=== PATIENT | male | born 1955 | race American Indian/Alaskan Native ===

== ENCOUNTER 2017-03-11 15:28 | Emergency (ER) | payer MEDICARE ==
[2017-03-11 15:53] VITALS: BP 154/95; PULSE 78; RESP 18; TEMP 98.2; O2SAT 96
--- NOTE | 2017-03-11 16:23 | ED PDOC ---
HPI: Back Time Seen by Provider: 03/11/17 16:22 Chief Complaint (Nursing): Back Pain Chief Complaint (Provider): BACK PAIN History Per: Patient (61 Y/O MALE H/O PROSTATE CANCER HERE WITH LOWER BACK PAIN AND PAIN RADIATING TO LEFT LEG/FOOT. STATES HE HAS H/O URINARY INCONTINENCE RELATED TO PROSTATE ILLNESS. NOTES ADDITIONAL RAOUL-RECTAL PAIN WHICH HE ATTRIBUTES TO HEMORRHOIDS. HAS USED ANUSOL WITHOUT RELIEF. PERIRECTAL PAIN WAS MADE WORSE WITH RECENT FREQUENT STOOLS.) Past Medical History Reviewed: Historical Data, Nursing Documentation, Vital Signs Vital Signs: Last Vital Signs Temp 98.2 F 03/11/17 15:52 Pulse 78 03/11/17 15:52 Resp 18 03/11/17 15:52 BP 154/95 H 03/11/17 15:52 Pulse Ox 96 03/11/17 15:52 - Medical History PMH: Anxiety, Diabetes (type I), HTN, Malignancy (prostate cancer), Chronic Kidney Disease - Family History Family History: States: Unknown Family Hx - Immunization History Hx Tetanus Toxoid Vaccination: No Hx Influenza Vaccination: No Hx Pneumococcal Vaccination: No - Home Medications Home Medications: Ambulatory Orders Medication Instructions Recorded Insulin Glargine,Hum.rec.anlog 10 unit SC DAILY 03/23/15 [Lantus] Losartan [Cozaar] 100 mg PO DAILY 01/24/16 Ciprofloxacin [Cipro] 500 mg PO Q12 #14 tab 01/25/16 PARoxetine [Paxil] 20 mg PO DAILY #0 tab 01/25/16 Promethazine [Phenergan Syrup] 6.25 mg PO Q6 PRN #0 cup 01/25/16 metroNIDAZOLE [Flagyl] 500 mg PO Q8 #21 tab 01/25/16 Promethazine DM [Phenergan DM 10 ml PO Q8H PRN #120 ml 11/14/16 Syrup] Sulfamethoxazole/Trimethoprim 1 tab PO BID #14 tab 11/14/16 [Bactrim DS 800 mg-160 mg] Docusate [Colace] 100 mg PO BID #20 cap 03/11/17 - Allergies Allergies/Adverse Reactions: Allergies Allergy/AdvReac Type Severity Reaction Status Date / Time No Known Allergies Allergy Verified 03/11/17 15:51 Review of Systems ROS Statement: Except As Marked, All Systems Reviewed And Found Negative Physical Exam - Reviewed Nursing Documentation Reviewed: Yes Vital Signs Reviewed: Yes - Physical Exam Appears: Positive for: Well, Non-toxic, No Acute Distress Head Exam: Positive for: ATRAUMATIC, NORMAL INSPECTION, NORMOCEPHALIC Skin: Positive for: Normal Color, Warm, DRY Eye Exam: Positive for: EOMI, Normal appearance, PERRL ENT: Positive for: Normal ENT Inspection Neck: Positive for: Normal, Painless ROM Cardiovascular/Chest: Positive for: Regular Rate, Rhythm Respiratory: Positive for: CNT, Normal Breath Sounds Gastrointestinal/Abdominal: Positive for: Normal Exam, Bowel Sounds, Soft Back: Positive for: Normal Inspection Rectal: Positive for: Other (ULCER NOTED LEFT RAOUL-RECTAL REGION.) Extremity: Positive for: Normal ROM Neurologic/Psych: Positive for: Alert, Oriented - Laboratory Results Result Diagrams: 03/11/17 16:45 - ECG O2 Sat by Pulse Oximetry: 96 - Progress ED Course And Treament: ct l spine Impression: Degenerative changes. Osseous demineralization. No acute fracture or subluxation identified. 6 mm L3 sclerotic focus. At least 2 subcentimeter sclerotic foci right iliac wing. 3 mm L1 lucent focus, right articular process. In this patient with prostate cancer, recommend further evaluation with nuclear medicine bone scan and /or MRI lumbar spine without and with IV contrast. 15 mm soft tissue density within the left upper quadrant favored to represent splenule, however distal pancreatic tail lesion cannot be excluded. This region is not well visualized on prior study due to motion artifact. Recommend outpatient CT of the abdomen and pelvis for further evaluation if indicated. G/C SENT FOR ULCERATIVE LESIONS BY RECTUM. PATIENT DENIES ANY H/O ANAL INTERCOURSE OR TRAUMA TO REGION. ADVISED TO F/U WITH GI FOR FURTHER EVALUATION. CT RESULTS D/W HIM. PATIENT WILL F/U WITH PMD TOMORROW FOR MRI REFERRAL. Disposition - Clinical Impression Clinical Impression: Back pain, Perirectal ulcer - Patient ED Disposition Is Patient to be Admitted: No - Disposition Referrals: Chandra Poon MD [Staff Provider] - Timothy Huerta MD [Staff Provider] - Disposition: Routine/Home Disposition Time: 19:05 Condition: FAIR Additional Instructions: FOLLOW UP WITH YOUR PMD FOR EVALUATION OF YOUR SPINE WITH MRI. Prescriptions: Docusate [Colace] 100 mg PO BID #20 cap Instructions: Acute Low Back Pain (DC), Sciatica (ED)
[2017-03-11 16:59] LABS: BASO % 0.6 % (0.0-2.0); EOS # 0.2 K/uL (0.0-0.7); EOS % 4.4 % (0.0-4.0); HEMATOCRIT 38.8 % (35.0-51.0); LYMPH # 2.4 K/uL (1.0-4.3); LYMPH % 52.7 % (20.0-40.0); MEAN CELL VOLUME 84.4 fl (80.0-94.0); MEAN CORPUSCULAR HEMOGLOBIN 29.5 pg (27.0-31.0); MEAN CORPUSCULAR HGB CONC 34.9 g/dL (33.0-37.0); MEAN PLATELET VOLUME 8.2 fl (7.2-11.7); MONO # 0.5 K/uL (0.0-0.8); MONO % 10.8 % (0.0-10.0); NEUT # 1.4 K/uL (1.8-7.0); NEUT % 31.5 % (50.0-75.0); NRBC % 0.3 % (0.0-0.0); RED CELL DISTRIBUTION WIDTH 14.5 % (11.5-14.5); WHITE BLOOD COUNT 4.6 K/uL (4.8-10.8)
--- NOTE | 2017-03-11 18:28 | CT ---
CT lumbar spine without IV contrast Indication: Back pain history of prostate cancer Comparison: CT abdomen and pelvis with contrast 01/23/16 Technique: Noncontrast axial images of the lumbar spine were provided. Sagittal and coronal reformatted images were generated and reviewed. This CT exam was performed using 1 or more of the falling dose reduction techniques: Automated exposure control, adjustment of the MAA and/or kV according to patient size, and/or use of iterative reconstruction technique. Total exam DLP: 1477.80 MGy-cm Findings: Osseous demineralization limits evaluation. Vertebral body heights appear within normal limits. Alignment appears satisfactory. No acute fracture or subluxation identified. Paraspinal soft tissues appear unremarkable. 6 mm L3 sclerotic focus. At least 2 subcentimeter sclerotic foci right iliac wing. 3 mm L1 lucent focus, right articular process. Degenerative change occluding anterior bridging osteophytes sacroiliac joints. Limited visualization of the intra-abdominal and intrapelvic contents: 15 mm soft tissue density within the left upper quadrant favored to represent splenule, however distal pancreatic tail lesion cannot be excluded. Impression: Degenerative changes. Osseous demineralization. No acute fracture or subluxation identified. 6 mm L3 sclerotic focus. At least 2 subcentimeter sclerotic foci right iliac wing. 3 mm L1 lucent focus, right articular process. In this patient with prostate cancer, recommend further evaluation with nuclear medicine bone scan and /or MRI lumbar spine without and with IV contrast. 15 mm soft tissue density within the left upper quadrant favored to represent splenule, however distal pancreatic tail lesion cannot be excluded. This region is not well visualized on prior study due to motion artifact. Recommend outpatient CT of the abdomen and pelvis for further evaluation if indicated.
--- NOTE | 2017-03-12 07:55 | RAD ---
PROCEDURE: Radiographs of the Lumbar Spine. HISTORY: BACK PAIN COMPARISON: No prior. FINDINGS: BONES: Normal alignment. No listhesis. No fracture. DISC SPACES: Mild degenerative changes more prominent at L3-L4 and L4-L5. OTHER FINDINGS: None. IMPRESSION: Degenerative disc changes more prominent at L3-L4 and L4-L5. No evidence of acute fracture or subluxation.
== END 2017-03-11 19:35 | disposition home or self-care (01) ==
LOC: H.ER 15:28
DX: M54.9 Dorsalgia, unspecified (principal); K62.6 Ulcer of anus and rectum; I12.9 Hypertensive chronic kidney disease with stage 1 through stage 4 chronic kidney disease, or unspecified chronic kidney disease; M51.36 Other intervertebral disc degeneration, lumbar region; Z79.4 Long term (current) use of insulin; Z85.46 Personal history of malignant neoplasm of prostate; M79.605 Pain in left leg; R10.9 Unspecified abdominal pain

== ENCOUNTER 2018-04-14 16:48 | Emergency (ER) | payer MEDICARE ==
[2018-04-14 16:56] VITALS: RESP 16
--- NOTE | 2018-04-14 17:31 | ED PDOC ---
HPI: Abdomen Time Seen by Provider: 04/14/18 17:25 Chief Complaint (Nursing): Abdominal Pain History Per: Patient Onset/Duration Of Symptoms: Days (2) Current Symptoms Are (Timing): Still Present Severity: Mild Pain Scale Rating Of: 2 Location Of Pain/Discomfort: LLQ Quality Of Discomfort: Sharp Associated Symptoms: Nausea, Urinary Symptoms. denies: Vomiting, Diarrhea Exacerbating Factors: None Alleviating Factors: None Additional Complaint(s): Sharp LLQ abd pain assoc with nausea. Has also noted dark colored urine assoc with burning. Denies fever. No vomiting or diarrhea. No bloody stool. Past Medical History Vital Signs: Last Vital Signs Temp 98.9 F 04/14/18 19:43 Pulse 64 04/14/18 19:43 Resp 16 04/14/18 19:43 BP 147/84 04/14/18 19:43 Pulse Ox 98 04/14/18 19:43 - Medical History PMH: Anxiety, Diabetes (type I), HTN, Malignancy (prostate cancer), Chronic Kidney Disease - Family History Family History: States: Unknown Family Hx - Immunization History Hx Tetanus Toxoid Vaccination: No Hx Influenza Vaccination: No Hx Pneumococcal Vaccination: No - Home Medications Home Medications: Ambulatory Orders Medication Instructions Recorded Insulin Glargine,Hum.rec.anlog 10 unit SC DAILY 03/23/15 [Lantus] Losartan [Cozaar] 100 mg PO DAILY 01/24/16 Ciprofloxacin [Cipro] 500 mg PO Q12 #14 tab 01/25/16 PARoxetine [Paxil] 20 mg PO DAILY #0 tab 01/25/16 Promethazine [Phenergan Syrup] 6.25 mg PO Q6 PRN #0 cup 01/25/16 metroNIDAZOLE [Flagyl] 500 mg PO Q8 #21 tab 01/25/16 Promethazine DM [Phenergan DM 10 ml PO Q8H PRN #120 ml 11/14/16 Syrup] Sulfamethoxazole/Trimethoprim 1 tab PO BID #14 tab 11/14/16 [Bactrim DS 800 mg-160 mg] Docusate [Colace] 100 mg PO BID #20 cap 03/11/17 Ciprofloxacin HCl [Cipro] 500 mg PO BID #20 tab 04/14/18 Dicyclomine [Dicyclomine HCl] 10 mg PO Q8 #10 cap 04/14/18 - Allergies Allergies/Adverse Reactions: Allergies Allergy/AdvReac Type Severity Reaction Status Date / Time No Known Allergies Allergy Verified 04/14/18 16:51 Review of Systems ROS Statement: Except As Marked, All Systems Reviewed And Found Negative Constitutional: Negative for: Fever Gastrointestinal: Positive for: Nausea, Abdominal Pain Physical Exam - Reviewed Nursing Documentation Reviewed: Yes Vital Signs Reviewed: Yes - Physical Exam Appears: Positive for: Non-toxic, No Acute Distress Head Exam: Positive for: ATRAUMATIC, NORMAL INSPECTION, NORMOCEPHALIC Skin: Positive for: Normal Color, Warm, DRY Eye Exam: Positive for: EOMI, Normal appearance, PERRL ENT: Positive for: Normal ENT Inspection Neck: Positive for: Normal, Painless ROM Cardiovascular/Chest: Positive for: Regular Rate, Rhythm Respiratory: Positive for: CNT, Normal Breath Sounds Gastrointestinal/Abdominal: Positive for: Soft, Tenderness (LLQ) Back: Positive for: Normal Inspection Extremity: Positive for: Normal ROM Neurologic/Psych: Positive for: Alert, Oriented - Laboratory Results Result Diagrams: 04/14/18 17:38 04/14/18 17:38 - ECG O2 Sat by Pulse Oximetry: 95 Disposition - Clinical Impression Clinical Impression: UTI (urinary tract infection), Colitis - Patient ED Disposition Is Patient to be Admitted: No Counseled Patient/Family Regarding: Studies Performed, Diagnosis, Need For Followup, Rx Given - Disposition [facility]errals: [facility]] Disposition: Routine/Home Disposition Time: 20:04 Condition: FAIR Prescriptions: Ciprofloxacin HCl [Cipro] 500 mg PO BID #20 tab Dicyclomine [Dicyclomine HCl] 10 mg PO Q8 #10 cap Instructions: Urinary Tract Infections in Adults, Irritable Bowel Syndrome Forms: [employer] (Tajik)
[2018-04-14 17:43] LABS: BASO # 0.1 K/uL (0.0-0.2); BASO % 0.8 % (0.0-2.0); EOS # 0.2 K/uL (0.0-0.7); EOS % 2.1 % (0.0-4.0); HEMOGLOBIN 14.9 g/dL (12.0-18.0); LYMPH # 3.5 K/uL (1.0-4.3); LYMPH % 45.9 % (20.0-40.0); MEAN CELL VOLUME 84.8 fl (80.0-94.0); MEAN CORPUSCULAR HEMOGLOBIN 28.9 pg (27.0-31.0); MEAN CORPUSCULAR HGB CONC 34.1 g/dL (33.0-37.0); MEAN PLATELET VOLUME 7.8 fl (7.2-11.7); MONO # 0.7 K/uL (0.0-0.8); MONO % 9.5 % (0.0-10.0); NEUT # 3.2 K/uL (1.8-7.0); NEUT % 41.7 % (50.0-75.0); NRBC % 0.2 % (0.0-0.0); RBC 5.15 Mil/uL (4.40-5.90); RED CELL DISTRIBUTION WIDTH 14.3 % (11.5-14.5); WHITE BLOOD COUNT 7.7 K/uL (4.8-10.8)
[2018-04-14 17:55] LABS: ALB/GLOB RATIO 0.8 (1.0-2.1); ALBUMIN 3.8 g/dL (3.5-5.0); ALT/SGPT 55 U/L (21-72); AST/SGOT 34 U/L (17-59); BLOOD UREA NITROGEN 9 mg/dl (9-20); CALCIUM 9.4 mg/dL (8.4-10.2); GFR AFRICAN-AMERICAN > 60; GFR NON-AFRICAN AMERICAN > 60
[2018-04-14] MEDS ORDERED: Sodium Chloride 0.9% 50 ML IV ONE (18:10)
[2018-04-14] MEDS ORDERED: Iohexol 300 100 ML IJ ONE (18:10)
[2018-04-14 19:44] VITALS: BP 147/84; PULSE 64; TEMP 98.9
--- NOTE | 2018-04-14 20:02 | CT ---
EXAM: CT Abdomen and Pelvis With Intravenous Contrast EXAM DATE/TIME: 04/14/2018 5:29 PM CLINICAL HISTORY: 62 years old, male; Pain; Abdominal pain; Generalized; Prior surgery; Surgery date: 6+ months; Surgery type: Prostate removed; Additional info: Abd pain, h/o colitis TECHNIQUE: Axial computed tomography images of the abdomen and pelvis with intravenous contrast. All CT scans at this facility use one or more dose reduction techniques, viz.: automated exposure control; ma/kV adjustment per patient size (including targeted exams where dose is matched to indication; i.e. head); or iterative reconstruction technique. Coronal and sagittal reformatted images were created and reviewed. CONTRAST: 100 mL of [id number] administered intravenously. COMPARISON: CT - ABD PELVIS PO IV CONTRAST 2016-01-23 23:33 FINDINGS: Lower thorax: Heart size is normal. There is a small hiatal hernia. There is minimal atelectasis and scarring at the lung bases. ABDOMEN: Liver: There is fatty infiltration of the liver. Hepatic contours are nodular. Gallbladder and bile ducts: unremarkable Pancreas: unremarkable Spleen: Spleen is unremarkable. There is an accessory spleen in the left upper quadrant. Adrenals: There is mild nodular thickening of the adrenals right greater than left. Kidneys and ureters: Right kidney and ureter are unremarkable. There is an exophytic 10 mm left lower pole renal lesion not a cyst by CT criteria. There are no left renal or ureteral stones. There is mild left ureterectasis. There is left ureteral mucosal thickening and enhancement. Stomach and bowel: Stomach is incompletely distended. Rotation is normal. There are mildly distended small bowel loops in the left upper quadrant. There is mild duodenal and proximal jejunal wall and fold thickening. There is fluid and air throughout the small bowel. There mildly distended mid small bowel loops. There is mild terminal ileal wall thickening with fatty infiltration of the terminal ileal. There is asymmetric fatty infiltration of the colon wall. There is mild nonspecific colonic wall thickening at the splenic flexure. There is minimal diverticulosis PELVIS: Appendix: See stomach and bowel Bladder: Bladder is incompletely distended. There is mild bladder wall thickening. Reproductive: Prostate is absent. Seminal vesicles are unremarkable. ABDOMEN and PELVIS: Intraperitoneal space: There is no free air or free fluid. Bones/joints: Bony structures are osteopenic. There are degenerative changes. There is ankylosis of the sacroiliac joints.Vascular structures are unremarkable. Soft tissues: There is a small nonobstructing umbilical hernia containing fat and small bowel Vasculature: There are calcified phleboliths. Lymph nodes: There are mildly prominent mesenteric nodes greatest in the left upper quadrant IMPRESSION: Cirrhosis with fatty infiltration liver; left ureteral mucosal thickening and enhancement suggesting urinary tract infection; mild bladder wall thickening, underdistention versus inflammation; prostatectomy; small exophytic left renal lesion not a cyst by CT criteria; possible enterocolitis; nonobstructing umbilical hernia; shotty adenopathy Additional nonemergent findings as described above.
[2018-04-14 20:05] VITALS: O2SAT 95
== END 2018-04-14 20:34 | disposition home or self-care (01) ==
LOC: H.ER 16:48
DX: N39.0 Urinary tract infection, site not specified (principal); K52.9 Noninfective gastroenteritis and colitis, unspecified
CPT/HCPCS: 74177; 80053; 85025; 87086; 96374; 99284; J2270; Q9967

== ENCOUNTER 2018-04-27 00:28 | Emergency (ER) | payer MEDICARE ==
[2018-04-27 00:45] VITALS: BP 146/85; PULSE 83; RESP 16; O2SAT 98
[2018-04-27] MEDS ORDERED: Promethazine/Cod 6.25mg-10mg/5ml Syr UD PO STA (01:15)
--- NOTE | 2018-04-27 01:30 | ED PDOC ---
HPI: Chest Pain Time Seen by Provider: 04/27/18 00:45 Chief Complaint (Nursing): Chest Pain Chief Complaint (Provider): Chest Pain History Per: Patient History/Exam Limitations: no limitations Onset/Duration Of Symptoms: Days (x3) Additional Complaint(s): 62 year old male with a PMHx of prostrate cancer malignancy, HTN, diabetes, and COPD presents to the ED with complaints of right sided chest pain associated with white sputum productive cough and congestion, onset 3 days ago. Patient reports chest pain is worse when coughing. Denies fevers, dyspnea except during an episode of cough, medications for symptom relief. PMD: Alberto Leone Past Medical History Reviewed: Historical Data, Nursing Documentation, Vital Signs Vital Signs: Last Vital Signs Temp 98 F 04/27/18 07:28 Pulse 83 04/27/18 07:28 Resp 16 04/27/18 07:28 BP 146/85 04/27/18 07:28 Pulse Ox 98 04/27/18 07:28 - Medical History PMH: Anxiety, Diabetes (type I), HTN, Malignancy (prostate cancer), Chronic Kidney Disease - Surgical History Surgical History: No Surg Hx - Family History Family History: States: No Known Family Hx - Immunization History Hx Tetanus Toxoid Vaccination: No Hx Influenza Vaccination: No Hx Pneumococcal Vaccination: No - Home Medications Home Medications: Ambulatory Orders Medication Instructions Recorded Insulin Glargine,Hum.rec.anlog 10 unit SC DAILY 03/23/15 [Lantus] Losartan [Cozaar] 100 mg PO DAILY 01/24/16 Ciprofloxacin [Cipro] 500 mg PO Q12 #14 tab 01/25/16 PARoxetine [Paxil] 20 mg PO DAILY #0 tab 01/25/16 Promethazine [Phenergan Syrup] 6.25 mg PO Q6 PRN #0 cup 01/25/16 metroNIDAZOLE [Flagyl] 500 mg PO Q8 #21 tab 01/25/16 Sulfamethoxazole/Trimethoprim 1 tab PO BID #14 tab 11/14/16 [Bactrim DS 800 mg-160 mg] Docusate [Colace] 100 mg PO BID #20 cap 03/11/17 Ciprofloxacin HCl [Cipro] 500 mg PO BID #20 tab 04/14/18 Dicyclomine [Dicyclomine HCl] 10 mg PO Q8 #10 cap 04/14/18 Albuterol HFA [Ventolin HFA 90 1 puff IH Q4 #1 inhaler 04/27/18 mcg/actuation (8 g)] Azithromycin [Z-Navdeep] 250 mg PO ASDIR #6 tab 04/27/18 Promethazine DM [Phenergan DM 5 ml PO Q8H PRN #120 ml 04/27/18 Syrup] - Allergies Allergies/Adverse Reactions: Allergies Allergy/AdvReac Type Severity Reaction Status Date / Time No Known Allergies Allergy Verified 04/14/18 16:51 BAY Risk Score for UA/NSTEMI - BAY Risk Score Age > 64: NO 3 or more CAD Risk Factors: NO Known CAD (Stenosis greater than 50%): NO Aspirin use in past 7 days: NO Severe Angina: NO EKG ST changes greater than 0.5mm: NO Positive Cardiac Marker: NO BAY Score: 0 Risk %: 5% Wells Criteria for PE - Wells Criteria for Pulmonary Embolism Clinical Signs and Symptoms of DVT: No P.E is #1 Diagnosis, or Equally Likely: No Heart Rate >100: No Immobilization at least 3 days;Surgery previous 4 weeks: No Previous, objectively diagnosed PE or DVT: No Hemoptysis: No Malignancy w/treatment within 6 months, or palliative: No Total Score: 0 Review of Systems ROS Statement: Except As Marked, All Systems Reviewed And Found Negative Constitutional: Negative for: Fever ENT: Positive for: Nose Congestion Cardiovascular: Positive for: Chest Pain (right sided) Respiratory: Positive for: Cough (white sputum productive ) Physical Exam - Reviewed Nursing Documentation Reviewed: Yes Vital Signs Reviewed: Yes - Physical Exam Appears: Positive for: Non-toxic, No Acute Distress Head Exam: Positive for: ATRAUMATIC, NORMOCEPHALIC Skin: Positive for: Normal Color, Warm, Dry Eye Exam: Positive for: Normal appearance, EOMI, PERRL ENT: Positive for: Normal ENT Inspection Neck: Positive for: Normal, Painless ROM, Supple Cardiovascular/Chest: Positive for: Regular Rate, Rhythm. Negative for: Chest Non Tender (right chest wall tender to palpation), Murmur Respiratory: Positive for: Normal Breath Sounds. Negative for: Respiratory Distress Gastrointestinal/Abdominal: Positive for: Normal Exam, Soft. Negative for: Tenderness Back: Positive for: Normal Inspection. Negative for: L CVA Tenderness, R CVA Tenderness, Vertebral Tenderness Extremity: Positive for: Normal ROM. Negative for: Pedal Edema, Deformity Neurologic/Psych: Positive for: Alert, Oriented. Negative for: Motor/Sensory Deficits - Laboratory Results Result Diagrams: 04/27/18 01:35 04/27/18 01:35 - ECG O2 Sat by Pulse Oximetry: 98 (RA) Pulse Ox Interpretation: Normal - Radiology X-Ray: Interpreted by Me, Viewed By Me X-Ray Interpretation: No Acute Disease - Progress Re-evaluation Time: 03:30 Condition: Re-examined, Improved Medical Decision Making Medical Decision Making: Time: 0127 Impression: chest pain, cough, congestion Differentials include but not limited to pneumonia, bronchitis, and ACS Plan: -- EKG -- B-Type Natriuretic -- BMP -- Troponin I -- CBC wit differentials -- CXR Two Views -- Phenergan/Codeine Oral Syrup 5 ml PO -- Cooling Tower Operator Scribe Attestation: Documented by Rosette Alejandre, acting as a scribe for Dr. Gavin Winchester MD. Provider Scribe Attestation: All medical record entries made by the Scribe were at my direction and personally dictated by me. I have reviewed the chart and agree that the record accurately reflects my personal performance of the history, physical exam, medical decision making, and the department course for this patient. I have also personally directed, reviewed, and agree with the discharge instructions and disposition. Disposition - Clinical Impression Clinical Impression: Chest pain, Bronchitis - Patient ED Disposition Is Patient to be Admitted: No Doctor Will See Patient In The: Office Counseled Patient/Family Regarding: Studies Performed, Diagnosis, Need For Followup - Disposition Referrals: Alberto Leone MD [Family Provider] - Disposition: Routine/Home Disposition Time: 03:48 Condition: GOOD Additional Instructions: Take your medications as instructed. Follow up with your PCP in 2-3 days. Prescriptions: Albuterol HFA [Ventolin HFA 90 mcg/actuation (8 g)] 1 puff IH Q4 #1 inhaler Azithromycin [Z-Navdeep] 250 mg PO ASDIR #6 tab Promethazine DM [Phenergan DM Syrup] 5 ml PO Q8H PRN #120 ml PRN Reason: Cough Instructions: Chest Pain, Acute Bronchitis
[2018-04-27 01:42] LABS: BASO % 0.6 % (0.0-2.0); EOS # 0.1 K/uL (0.0-0.7); EOS % 1.1 % (0.0-4.0); HEMOGLOBIN 14.8 g/dL (12.0-18.0); LYMPH # 3.1 K/uL (1.0-4.3); MEAN CELL VOLUME 85.1 fl (80.0-94.0); MEAN CORPUSCULAR HEMOGLOBIN 29.2 pg (27.0-31.0); MEAN CORPUSCULAR HGB CONC 34.4 g/dL (33.0-37.0); MEAN PLATELET VOLUME 7.3 fl (7.2-11.7); MONO # 0.7 K/uL (0.0-0.8); MONO % 10.6 % (0.0-10.0); NEUT # 2.9 K/uL (1.8-7.0); NEUT % 42.7 % (50.0-75.0); NRBC % 0.1 % (0.0-0.0); RBC 5.07 Mil/uL (4.40-5.90); RED CELL DISTRIBUTION WIDTH 14.2 % (11.5-14.5); WHITE BLOOD COUNT 6.9 K/uL (4.8-10.8)
[2018-04-27 01:52] LABS: BLOOD UREA NITROGEN 8 mg/dl (9-20); CALCIUM 8.4 mg/dL (8.4-10.2); GFR AFRICAN-AMERICAN > 60; GFR NON-AFRICAN AMERICAN > 60
[2018-04-27] MEDS ORDERED: Promethazine/Cod 6.25mg-10mg/5ml Syr UD ONE (02:05)
[2018-04-27 02:17] LABS: B-TYPE NATRIURETIC PEPTIDE 40.4 pg/ml (0-900)
[2018-04-27 07:32] VITALS: TEMP 98
--- NOTE | 2018-04-27 09:08 | RAD ---
HISTORY: chest pain COMPARISON: Chest radiograph dated 11/14/2016. TECHNIQUE: Chest PA and lateral FINDINGS: LUNGS: No active pulmonary disease. PLEURA: No significant pleural effusion identified. No pneumothorax apparent. CARDIOVASCULAR: Atherosclerotic aortic calcifications cardiomediastinal silhouette stably enlarged. OSSEOUS STRUCTURES: Unchanged. VISUALIZED UPPER ABDOMEN: Normal. OTHER FINDINGS: None. IMPRESSION: No active disease.
--- NOTE | 2018-04-28 11:48 | CARD ---
APPROVED REPORT EKG Measurement Heart [id number] <Conclusion> Normal sinus rhythm normal ECG
== END 2018-04-27 03:53 | disposition home or self-care (01) ==
LOC: H.ER 00:28
DX: R07.89 Other chest pain (principal); J40 Bronchitis, not specified as acute or chronic; E11.22 Type 2 diabetes mellitus with diabetic chronic kidney disease; F41.9 Anxiety disorder, unspecified; I12.9 Hypertensive chronic kidney disease with stage 1 through stage 4 chronic kidney disease, or unspecified chronic kidney disease; Z79.4 Long term (current) use of insulin; Z85.46 Personal history of malignant neoplasm of prostate; J44.0 Chronic obstructive pulmonary disease with (acute) lower respiratory infection

== ENCOUNTER 2018-11-08 20:51 | Emergency (ER) | payer MEDICARE ==
[2018-11-08 21:06] VITALS: O2SAT 95
[2018-11-08] MEDS ORDERED: Lactated Ringer's 1,000 ML IV STA (22:20)
--- NOTE | 2018-11-08 22:45 | ED PDOC ---
HPI: Abdomen Time Seen by Provider: 11/08/18 21:12 Chief Complaint (Nursing): GI Problem Chief Complaint (Provider): GI Problem History Per: Patient History/Exam Limitations: no limitations Onset/Duration Of Symptoms: Days (x2) Current Symptoms Are (Timing): Still Present Additional Complaint(s): 62 year old male with pmHx of HTN and COPD, presents to ED with 10 episodes of watery, nonbloody diarrhea associated with lower abdominal pain and nausea for 2 days. He reports recent use of ABX for a tooth infection but denies any vomiting. Additionally, patient states he has right-sided foot pain with swelling, cramping, and rash to both feet. PCP: Dr. Alberto Leone Past Medical History Reviewed: Historical Data, Nursing Documentation, Vital Signs Vital Signs: Last Vital Signs Temp 97.7 F 11/08/18 21:02 Pulse 95 H 11/08/18 21:02 Resp 18 11/08/18 21:02 BP 138/78 11/08/18 21:02 Pulse Ox 95 11/08/18 21:02 - Medical History PMH: Anxiety, Diabetes (type I), HTN, Malignancy (prostate cancer), Chronic Kidney Disease - Family History Family History: States: Unknown Family Hx - Social History Current smoker - smoking cessation education provided: No - Immunization History Hx Tetanus Toxoid Vaccination: No Hx Influenza Vaccination: No Hx Pneumococcal Vaccination: No - Home Medications Home Medications: Ambulatory Orders Medication Instructions Recorded RX: Insulin Glargine,Hum.rec.anlog 10 unit SC DAILY 03/23/15 [Lantus] RX: Losartan [Cozaar] 100 mg PO DAILY 01/24/16 Ciprofloxacin [Cipro] 500 mg PO Q12 #14 tab 01/25/16 RX: PARoxetine [Paxil] 20 mg PO DAILY #0 tab 01/25/16 RX: Promethazine [Phenergan Syrup] 6.25 mg PO Q6 PRN #0 cup 01/25/16 metroNIDAZOLE [Flagyl] 500 mg PO Q8 #21 tab 01/25/16 Sulfamethoxazole/Trimethoprim 1 tab PO BID #14 tab 11/14/16 [Bactrim DS 800 mg-160 mg] Docusate [Colace] 100 mg PO BID #20 cap 03/11/17 Ciprofloxacin HCl [Cipro] 500 mg PO BID #20 tab 04/14/18 Dicyclomine [Dicyclomine HCl] 10 mg PO Q8 #10 cap 04/14/18 RX: Albuterol HFA [Ventolin HFA 90 1 puff IH Q4 #1 inhaler 04/27/18 mcg/actuation (8 g)] RX: Azithromycin [Z-Navdeep] 250 mg PO ASDIR #6 tab 04/27/18 RX: Promethazine DM [Phenergan DM 5 ml PO Q8H PRN #120 ml 04/27/18 Syrup] Dicyclomine [Bentyl] 20 mg PO Q12 PRN #20 tab 11/09/18 - Allergies Allergies/Adverse Reactions: Allergies Allergy/AdvReac Type Severity Reaction Status Date / Time No Known Allergies Allergy Verified 11/08/18 21:01 Review of Systems ROS Statement: Except As Marked, All Systems Reviewed And Found Negative Gastrointestinal: Positive for: Nausea, Abdominal Pain (lower), Diarrhea (nonbloody, watery). Negative for: Vomiting Musculoskeletal: Positive for: Foot Pain (right-sided with swelling and cramping) Skin: Positive for: Rash (bilateral feet) Physical Exam - Reviewed Nursing Documentation Reviewed: Yes Vital Signs Reviewed: Yes - Physical Exam Appears: Positive for: No Acute Distress Head Exam: Positive for: ATRAUMATIC, NORMOCEPHALIC Skin: Positive for: Warm, Dry Eye Exam: Positive for: EOMI, PERRL ENT: Negative for: Pharyngeal Erythema, Tonsillar Exudate Neck: Positive for: Painless ROM, Supple Cardiovascular/Chest: Positive for: Regular Rate, Rhythm. Negative for: Murmur Respiratory: Positive for: Normal Breath Sounds. Negative for: Respiratory Distress Gastrointestinal/Abdominal: Positive for: Tenderness (lower bilaterally to palpa tion). Negative for: Mass, Guarding, Rebound Back: Positive for: Normal Inspection. Negative for: Muscle Spasm Extremity: Positive for: Tenderness (along lateral right foot and ankle), Swelling (diffuse to right foot and ankle), Other (erythematous papules on dorsum of bilateral foot, ankle and distal lower leg) Lymphatic: Negative for: Adenopathy Neurologic/Psych: Positive for: Alert. Negative for: Motor/Sensory Deficits - Laboratory Results Result Diagrams: 11/08/18 22:46 11/08/18 22:46 - ECG O2 Sat by Pulse Oximetry: 95 (RA) Pulse Ox Interpretation: Normal Medical Decision Making Medical Decision Making: Initial Impression: diarrheal illness; right foot edema Differential diagnosis includes but not limited to: colitis; enteritis; electrolyte abnormality; dehydration; gouty arthritis; foot sprain; DVT Initial Plan: * CT ABD/pelvis * Labs * IV Lactated Ringers * XR right foot * Stool culture * C-diff toxin Scribe Attestation: Documented by Michelle Pitt, acting as a scribe for Lauren Mccurdy MD. Provider Scribe Attestation: All medical record entries made by the Scribe were at my direction and personally dictated by me. I have reviewed the chart and agree that the record accurately reflects my personal performance of the history, physical exam, medical decision making, and the department course for this patient. I have also personally directed, reviewed, and agree with the discharge instructions and disposition. Disposition - Clinical Impression Clinical Impression: Gastroenteritis - Disposition Disposition Time: 00:00 Condition: STABLE Prescriptions: Dicyclomine [Bentyl] 20 mg PO Q12 PRN #20 tab PRN Reason: abdominal pain/diarrhea Patient Signed Over To: Eze Last Handoff Comments: Pending CT, reassessment and final ER disposition
[2018-11-08 22:49] LABS: BASO % 0.5 % (0.0-2.0); EOS # 0.2 K/uL (0.0-0.7); EOS % 2.7 % (0.0-4.0); HEMOGLOBIN 13.8 g/dL (12.0-18.0); LYMPH # 3.3 K/uL (1.0-4.3); LYMPH % 39.6 % (20.0-40.0); MEAN CELL VOLUME 85.4 fl (80.0-94.0); MEAN CORPUSCULAR HEMOGLOBIN 28.8 pg (27.0-31.0); MEAN CORPUSCULAR HGB CONC 33.8 g/dL (33.0-37.0); MEAN PLATELET VOLUME 8.2 fl (7.2-11.7); MONO # 1.1 K/uL (0.0-0.8); NEUT # 3.7 K/uL (1.8-7.0); NEUT % 44.2 % (50.0-75.0); NRBC % 0.3 % (0.0-0.0); RBC 4.79 Mil/uL (4.40-5.90); RED CELL DISTRIBUTION WIDTH 13.8 % (11.5-14.5); WHITE BLOOD COUNT 8.4 K/uL (4.8-10.8)
[2018-11-08 22:54] LABS: INR 1.1; PROTHROMBIN TIME 12.8 Seconds (9.8-13.1)
[2018-11-08 22:57] LABS: PARTIAL THROMBOPLASTIN TIME 29.4 Seconds (25.6-37.1)
[2018-11-08 22:59] LABS: ALB/GLOB RATIO 0.9 (1.0-2.1); ALBUMIN 3.8 g/dL (3.5-5.0); ALT/SGPT 40 U/L (21-72); AST/SGOT 31 U/L (17-59); BLOOD UREA NITROGEN 15 mg/dl (9-20); CALCIUM 9.2 mg/dL (8.4-10.2); GFR NON-AFRICAN AMERICAN > 60; URIC ACID 6.3 mg/Dl (3.5-8.5)
[2018-11-08] MEDS ORDERED: Sodium Chloride 0.9% 50 ML IV ONE (23:31)
[2018-11-08] MEDS ORDERED: Iohexol 300 100 ML IJ ONE (23:31)
--- NOTE | 2018-11-09 00:16 | ED PDOC ---
- Laboratory Results Result Diagrams: 11/08/18 22:46 11/08/18 22:46 - ECG O2 Sat by Pulse Oximetry: 95 (RA) Medical Decision Making Medical Decision Making: Time: 00:00 --Patient is endorsed to provider by Dr. Mccurdy, pending CT ABD/pelvis results and re-evaluation. XR right foot: (-) fracture or dislocation. Time: 0028 --CT ABD/pelvis FINDINGS: LUNG BASES: The lung bases appear clear. No pleural effusions are seen. LIVER: Unremarkable. GALLBLADDER AND BILE DUCTS: The gallbladder appears within normal limits. No radioopaque gallstones are seen. No biliary ductal dilatation is evident. PANCREAS: Unremarkable. SPLEEN: Unremarkable. ADRENAL GLANDS: Unremarkable. KIDNEYS, URETERS, AND BLADDER: The kidneys appear within normal limits. There is no hydronephrosis or hydroureter. No urinary calculi are seen. STOMACH AND BOWEL: Thick walled fluid filled duodenum and loops of jejunum as well as ileum compatible with enteritis. Thick walled fluid filled colon is noted with involvement of all segments compatible with mild pancolitis. Infectious and inflammatory etiologies are considered. Consider follow up with colonoscopy. Small umbilical hernia is noted containing nonobstructed small bowel. APPENDIX: No evidence of acute appendicitis on CT examination. PERITONEUM: No free fluid. No free air. LYMPH NODES: No lymphadenopathy is evident. REPRODUCTIVE: Unremarkable as visualized. VASCULATURE: No evidence of abdominal aortic aneurysm. BONES: No aggressive appearing osseous lesion. No acute osseous pathology evident. IMPRESSION: Mild enteritis and colitis. Infectious and inflammatory etiologies are considered. Consider follow up with colonoscopy. Small umbilical hernia is noted containing nonobstructed small bowel. Time: 3 --US venous duplex of right LE additionally ordered for foot/ankle pain R/O DVT. Time: 446 --US duplex right LE FINDINGS: DEEP VEINS: The common femoral, superficial femoral, and popliteal veins are echolucent and compressible. There is normal color Doppler flow throughout. The visualized calf veins appear patent. SUPERFICIAL VEINS: The visualized greater saphenous vein is patent. SOFT TISSUES: No popliteal fossa cyst or other abnormalities. IMPRESSION: No deep venous thrombosis evident on right lower extremity examination. Time: 15 --Upon provider reevaluation, patient is medically stable, reports improvement in symptoms, and requires no further treatment in the ED at this time. 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 Loene. All results were relayed to patient. Counseling was provided and all questions were answered regarding diagnosis. There is agreement to discharge plan. Return if symptoms persist or worsen. Clinical Impression: Gastroenteritis Scribe Attestation: Documented by Michelle Pitt, acting as a scribe for Eze Last MD. Provider Scribe Attestation: All medical record entries made by the Scribe were at my direction and personally dictated by me. I have reviewed the chart and agree that the record accurately reflects my personal performance of the history, physical exam, medical decision making, and the department course for this patient. I have also personally directed, reviewed, and agree with the discharge instructions and disposition. Disposition Counseled Patient/Family Regarding: Studies Performed, Diagnosis, Need For Followup, Rx Given - Clinical Impression Clinical Impression: Gastroenteritis - POA Present On Arrival: None - Disposition Disposition: Routine/Home Disposition Time: 05:15 Condition: STABLE Prescriptions: Dicyclomine [Bentyl] 20 mg PO Q12 PRN #20 tab PRN Reason: abdominal pain/diarrhea Instructions: Viral Gastroenteritis Forms: [employer] (Spanish)
[2018-11-09 06:17] VITALS: BP 122/69; PULSE 76; RESP 16; TEMP 97.3
--- NOTE | 2018-11-09 11:51 | US ---
Date of service: 11/09/2018 PROCEDURE: Right lower extremity venous duplex Doppler. HISTORY: R/O DVT COMPARISON: None available. TECHNIQUE: Common femoral, superficial femoral, popliteal and posterior tibial veins were evaluated. Flow was assessed with color Doppler, compressibility, assessment of phasic flow and augmentation response. FINDINGS: COMMON FEMORAL VEIN: Unremarkable. SUPERFICIAL FEMORAL VEIN: Unremarkable. POPLITEAL VEIN: Unremarkable. POSTERIOR TIBIAL VEIN: Unremarkable. OTHER FINDINGS: None. IMPRESSION: No evidence of deep venous thrombosis in the right lower extremity.
--- NOTE | 2018-11-09 15:06 | RAD ---
Date of service: 11/08/2018 PROCEDURE: Right Foot Radiographs. HISTORY: FOOT PAIN AND SWELLING No history of trauma provided. COMPARISON: None. FINDINGS: BONES: Normal. No fracture. JOINTS: Normal. SOFT TISSUES: Normal. OTHER FINDINGS: None. IMPRESSION: No significant or acute findings to account for/ related to the clinical presentation.
--- NOTE | 2018-11-09 18:16 | CT ---
Date of service: 11/08/2018 PROCEDURE: CT Abdomen and Pelvis with Oral contrast. HISTORY: Diarrhea h/o colitis COMPARISON: Comparison made with prior study 04/14/2018 TECHNIQUE: Contiguous helical/transaxial images of the abdomen and pelvis performed following intravenous injection of approximately 95 cc Omnipaque 300 contrast material. Additional 2D cc sagittal and coronal reformats Reformats generated. Radiation dose: Total exam DLP = 927.26 mGy-cm. This CT exam was performed using one or more of the following dose reduction techniques: Automated exposure control, adjustment of the mA and/or kV according to patient size, and/or use of iterative reconstruction technique. FINDINGS: LOWER THORAX: Unremarkable. LIVER: Liver is mildly enlarged measuring nearly; rule out cirrhosis.. Nonspecific. GALLBLADDER AND BILE DUCTS: Gallbladder incompletely distended with slight thick-walled appearance. No intraluminal gallbladder calculi PANCREAS: The pancreas appears somewhat atrophic and fatty replaced. SPLEEN: Unremarkable. No splenomegaly. Questionable small splenule. ADRENALS: Slightly nodular thickened appearing adrenal glands. KIDNEYS AND URETERS: Kidneys demonstrate relatively symmetric nephrograms. No evidence of nephrolithiasis or hydronephrosis. There is a small exophytic cyst seen arising from the posterior lower pole cortex left kidney measuring 12 mm BLADDER: Urinary bladder physiologically distended. No evidence of intraluminal urinary bladder calculi. REPRODUCTIVE: Unremarkable as visualized. APPENDIX: The appendix measures nearly 11 mm with slight wall thickening. No obvious inflammatory changes in the adjacent mesentery findings could possibly represent an early acute appendicitis however clinical correlation with history physical exam and laboratory values recommended.. Clinical correlation recommended. BOWEL: Evaluation of the bowel is somewhat limited due to the lack of oral contrast material. The stomach is partially distended with food debris liquid and air. Visualized loops of small bowel exhibit normal contour and caliber of the. No evidence of acute mechanical small bowel obstruction. PERITONEUM: Unremarkable. No fluid collection. No free air. There is a small to medium-sized umbilical hernia that contains a loop of unobstructed small bowel. Small bilateral fat containing inguinal hernias. LYMPH NODES: Unremarkable. No enlarged lymph nodes. VASCULATURE: Unremarkable. No aortic aneurysm. No significant aortic atherosclerotic calcification or mural plaque present. BONES: Mild multilevel degenerative spondylosis of the thoracic spine. OTHER FINDINGS: None. IMPRESSION: The appendix measures nearly 11 mm with slight wall thickening. No obvious inflammatory changes in the adjacent mesentery findings could possibly represent an early acute appendicitis however clinical correlation with history physical exam and laboratory values recommended.. Clinical correlation recommended. Findings suggest underlying the hepatic cirrhosis. Clinical correlation recommended. There is a small to medium-sized umbilical hernia containing a knuckle of unobstructed small bowel. The this report was placed in PA review folder for follow up.
== END 2018-11-09 06:16 | disposition home or self-care (01) ==
LOC: H.ER 20:51
DX: K52.9 Noninfective gastroenteritis and colitis, unspecified (principal)
CPT/HCPCS: 73630; 74177; 80053; 83605; 83735; 84100; 84550; 85025; 85378; 85610; 85730; 93971; 99284; J7120; Q9967

== ENCOUNTER 2018-11-24 13:28 | Emergency (ER) | payer MEDICARE ==
[2018-11-24] MEDS ORDERED: Iohexol 240 (50 ml) PO STA (14:27)
--- NOTE | 2018-11-24 14:44 | ED PDOC ---
HPI: Abdomen Time Seen by Provider: 11/24/18 14:18 Chief Complaint (Nursing): Abdominal Pain Chief Complaint (Provider): Abdominal Pain History Per: Patient History/Exam Limitations: no limitations Onset/Duration Of Symptoms: Days Current Symptoms Are (Timing): Still Present Additional Complaint(s): Patient is a 62 y/o male with a PMHx of HTN, anxiety, malignancy, COPD, DM, colitis, and chronic kidney disease who presents to the ED for evaluation of abdominal pain, onset today. Patient reports a cramping sensation in her lower abdomen and decreased appetite similar to previous episode with colitis. In addition, patient states that for the last week he has been frequently urinating with incontinence. Patient denies nausea, vomiting, diarrhea, other urinary symptoms, and headaches. Patient also claims for the past four days experiencing blurry vision even when wearing his glasses. PCP: Dr. Alberto Kapadia Past Medical History Reviewed: Historical Data, Nursing Documentation, Vital Signs Vital Signs: Last Vital Signs Temp 97.9 F 11/24/18 14:09 Pulse 94 H 11/24/18 14:09 Resp 18 11/24/18 14:09 BP 116/71 11/24/18 14:09 Pulse Ox 96 11/24/18 14:09 - Medical History PMH: Anxiety, COPD, Diabetes (type I), HTN, Malignancy (prostate cancer), Chronic Kidney Disease Other PMH: Colitis - Surgical History Other surgeries: Prostatectomy - Family History Family History: States: No Known Family Hx - Social History Current smoker - smoking cessation education provided: Yes Alcohol: None Drugs: Denies - Immunization History Hx Tetanus Toxoid Vaccination: No Hx Influenza Vaccination: No Hx Pneumococcal Vaccination: No - Home Medications Home Medications: Ambulatory Orders Medication Instructions Recorded Insulin Glargine,Hum.rec.anlog 10 unit SC DAILY 03/23/15 [Lantus] Losartan [Cozaar] 100 mg PO DAILY 01/24/16 Ciprofloxacin [Cipro] 500 mg PO Q12 #14 tab 01/25/16 PARoxetine [Paxil] 20 mg PO DAILY #0 tab 01/25/16 Promethazine [Phenergan Syrup] 6.25 mg PO Q6 PRN #0 cup 01/25/16 metroNIDAZOLE [Flagyl] 500 mg PO Q8 #21 tab 01/25/16 Sulfamethoxazole/Trimethoprim 1 tab PO BID #14 tab 11/14/16 [Bactrim DS 800 mg-160 mg] Docusate [Colace] 100 mg PO BID #20 cap 03/11/17 Ciprofloxacin HCl [Cipro] 500 mg PO BID #20 tab 04/14/18 Dicyclomine [Dicyclomine HCl] 10 mg PO Q8 #10 cap 04/14/18 Albuterol HFA [Ventolin HFA 90 1 puff IH Q4 #1 inhaler 04/27/18 mcg/actuation (8 g)] Azithromycin [Z-Navdeep] 250 mg PO ASDIR #6 tab 04/27/18 Promethazine DM [Phenergan DM 5 ml PO Q8H PRN #120 ml 04/27/18 Syrup] Dicyclomine [Bentyl] 20 mg PO Q12 PRN #20 tab 11/09/18 Dicyclomine [Bentyl] 20 mg PO QID PRN #20 tab 11/24/18 - Allergies Allergies/Adverse Reactions: Allergies Allergy/AdvReac Type Severity Reaction Status Date / Time No Known Allergies Allergy Verified 11/08/18 21:01 Review of Systems ROS Statement: Except As Marked, All Systems Reviewed And Found Negative (as per HPI) Eyes: Positive for: Other (Blurriness even with glasses) Gastrointestinal: Positive for: Abdominal Pain (Lower Cramping). Negative for: Nausea, Vomiting, Diarrhea Genitourinary Male: Positive for: Frequency, Incontinence. Negative for: Dysuria, Hematuria Neurological: Negative for: Headache Physical Exam - Reviewed Nursing Documentation Reviewed: Yes Vital Signs Reviewed: Yes - Physical Exam Appears: Positive for: Well, No Acute Distress Head Exam: Positive for: ATRAUMATIC, NORMAL INSPECTION, NORMOCEPHALIC Skin: Positive for: Warm, Dry Eye Exam: Positive for: Normal appearance, EOMI. Negative for: Nystagmus ENT: Negative for: Pharyngeal Erythema, Tonsillar Exudate Neck: Positive for: Painless ROM, Supple Cardiovascular/Chest: Positive for: Regular Rate, Rhythm. Negative for: Murmur Respiratory: Positive for: Normal Breath Sounds. Negative for: Respiratory Distress Gastrointestinal/Abdominal: Positive for: Soft, Tenderness (Distractable to palpation of Lower Abd), Other (Protuberant and Obese). Negative for: Mass, Guarding, Rebound Back: Positive for: Normal Inspection. Negative for: Muscle Spasm Extremity: Positive for: Normal ROM. Negative for: Deformity Lymphatic: Negative for: Adenopathy Neurologic/Psych: Positive for: Alert. Negative for: Motor/Sensory Deficits - Laboratory Results Result Diagrams: 11/24/18 15:02 11/24/18 15:02 - ECG O2 Sat by Pulse Oximetry: 96 (RA) Pulse Ox Interpretation: Normal Medical Decision Making Medical Decision Making: Time: 1427 Impression: Abdominal pain and blurry vision likely unrelated. DDx includes but not limited to colitis, enteritis, dehydration, electrolyte abnormality, and myopia. Plan: CT Abd & pelvis PO & IV Contrast CMP Lact Acid, Plasma Lipase Magnesium Phosphorus TSH CBC Bentyl 20 mg PO IV Insertion ([place]) Nursing Communication as Ordered UA Time: 1430 After reviewing chart of recent visit, patient demonstrates similar, yet unrelated, complaints. At that time, patient was diagnosed with colitis. 1600 Labs demonstrated elevated glucose, but minimal anion gap and no ketones on urine. Pt well appearing. IV insulin and IVF ordered. 1999 Glucose normalized. Stable for discharge. DW pt findings and need for control of glucose with meds. Advised f/u Dr Kapadia for review of medications and further evaluation of abdominal pain. Scribe Attestation: Documented by Yobany Phelps, acting as a scribe for Debra Damon MD. Provider Scribe Attestation: All medical record entries made by the Scribe were at my direction and personally dictated by me. I have reviewed the chart and agree that the record accurately reflects my personal performance of the history, physical exam, medical decision making, and the department course for this patient. I have also personally directed, reviewed, and agree with the discharge instructions and disposition. Disposition - Clinical Impression Clinical Impression: Hyperglycemia, Abdominal pain Counseled Patient/Family Regarding: Studies Performed, Diagnosis, Need For Followup - Disposition Disposition: Routine/Home Disposition Time: 20:33 Condition: IMPROVED Additional Instructions: STRICT DIABETIC DIET AND DRINK PLENTY OF WATER. TAKE ALL YOUR MEDICATIONS PRESCRIBED SEE DR KAPADIA THIS WEEK FOR REEVALUATION Prescriptions: Dicyclomine [Bentyl] 20 mg PO QID PRN #20 tab PRN Reason: abdominal pain Instructions: Hyperglycemia, Adult (DC), Stomach Ache and Stomach Upset
[2018-11-24 15:15] LABS: EOS # 0.2 K/uL (0.0-0.7); EOS % 3.1 % (0.0-4.0); HEMOGLOBIN 15.2 g/dL (12.0-18.0); LYMPH # 2.4 K/uL (1.0-4.3); LYMPH % 47.4 % (20.0-40.0); MEAN CELL VOLUME 83.9 fl (80.0-94.0); MEAN CORPUSCULAR HEMOGLOBIN 29.3 pg (27.0-31.0); MEAN CORPUSCULAR HGB CONC 34.9 g/dL (33.0-37.0); MEAN PLATELET VOLUME 8.8 fl (7.2-11.7); MONO # 0.3 K/uL (0.0-0.8); MONO % 6.1 % (0.0-10.0); NEUT # 2.1 K/uL (1.8-7.0); NEUT % 42.4 % (50.0-75.0); NRBC % 0.2 % (0.0-0.0); RBC 5.19 Mil/uL (4.40-5.90); RED CELL DISTRIBUTION WIDTH 13.8 % (11.5-14.5)
[2018-11-24 15:18] LABS: SQUAMOUS EPITHIAL < 1 /hpf (0-5); URINE BILIRUBIN NEGATIVE (NEGATIVE); URINE BLOOD SMALL (NEGATIVE); URINE CLARITY CLEAR (Clear); URINE COLOR YELLOW (YELLOW); URINE GLUCOSE (UA) >=500 mg/dL (NEGATIVE); URINE LEUKOCYTE ESTERASE NEG Leu/uL (Negative); URINE PROTEIN 30 mg/dL (NEGATIVE); URINE UROBILINOGEN 0.2-1.0 mg/dL (0.2-1.0)
[2018-11-24 15:32] LABS: ALB/GLOB RATIO 0.9 (1.0-2.1); ALBUMIN 4.4 g/dL (3.5-5.0); ALT/SGPT 89 U/L (21-72); AST/SGOT 45 U/L (17-59); BLOOD UREA NITROGEN 18 mg/dl (9-20); CALCIUM 9.9 mg/dL (8.4-10.2); GFR NON-AFRICAN AMERICAN > 60; LIPASE 229 U/L (23-300)
[2018-11-24] MEDS ORDERED: Insulin Regular 100 units/ml SC STA ×2 (15:38→17:16)
[2018-11-24] MEDS ORDERED: Insulin Regular 100 units/ml IVP STA ×2 (15:39→18:44)
[2018-11-24] MEDS ORDERED: Sodium Chloride 0.9% 1,000 ML IV STA (15:42)
[2018-11-24 21:13] VITALS: BP 112/68; PULSE 90; RESP 16; TEMP 97.8; O2SAT 99
== END 2018-11-24 21:13 | disposition home or self-care (01) ==
LOC: H.ER 13:28
DX: E11.9 Type 2 diabetes mellitus without complications (principal); R10.9 Unspecified abdominal pain; F17.200 Nicotine dependence, unspecified, uncomplicated; I12.9 Hypertensive chronic kidney disease with stage 1 through stage 4 chronic kidney disease, or unspecified chronic kidney disease; J44.9 Chronic obstructive pulmonary disease, unspecified; Z79.4 Long term (current) use of insulin; Z85.46 Personal history of malignant neoplasm of prostate; Z79.899 Other long term (current) drug therapy
CPT/HCPCS: 80053; 81003; 82948; 83605; 83690; 83735; 84100; 84443; 85025; 96361; 96374; 96376; 99283; J7030

== ENCOUNTER 2019-01-15 06:57 | Emergency (ER) | payer MEDICARE ==
[2019-01-15 07:04] VITALS: O2SAT 98
--- NOTE | 2019-01-15 07:19 | ED PDOC ---
Lower Extremity Pain/Injury Time Seen by Provider: 01/15/19 07:06 Chief Complaint (Nursing): Lower Extremity Problem/Injury Chief Complaint (Provider): Left ankle pain History Per: Patient History/Exam Limitations: no limitations Onset/Duration Of Symptoms: Mins Current Symptoms Are (Timing): Still Present Additional History Per: Patient Additional Complaint(s): 63yo male, with history of diabetes, hypertension, comes to ER reporting left ankle pain today. Patient states he was working out in the gym and is unsure of how but he injured his left ankle and now complains of pain and swelling to the ankle. Otherwise, he denies any weakness, numbness or tingling to the ankle; patient additionally denies any chest pain, shortness of breath. He states he is able to bear weight, but the pain worsens when he attempts to move. No complaints of knee pain, calf pain or foot pain as well. PMD: Alberto Leone Past Medical History Reviewed: Historical Data, Nursing Documentation, Vital Signs Vital Signs: Last Vital Signs Temp 97.3 F L 01/15/19 07:00 Pulse 70 01/15/19 07:00 Resp 17 01/15/19 07:00 BP 131/83 01/15/19 07:00 Pulse Ox 98 01/15/19 07:00 - Medical History PMH: Anxiety, COPD, Diabetes (type I), HTN, Malignancy (prostate cancer), Chronic Kidney Disease - Surgical History Surgical History: No Surg Hx - Family History Family History: States: No Known Family Hx - Social History Current smoker - smoking cessation education provided: No Alcohol: None Drugs: Denies - Immunization History Hx Tetanus Toxoid Vaccination: No Hx Influenza Vaccination: No Hx Pneumococcal Vaccination: No - Home Medications Home Medications: Ambulatory Orders Medication Instructions Recorded Insulin Glargine,Hum.rec.anlog 10 unit SC DAILY 03/23/15 [Lantus] Losartan [Cozaar] 100 mg PO DAILY 01/24/16 Ciprofloxacin [Cipro] 500 mg PO Q12 #14 tab 01/25/16 PARoxetine [Paxil] 20 mg PO DAILY #0 tab 01/25/16 Promethazine [Phenergan Syrup] 6.25 mg PO Q6 PRN #0 cup 01/25/16 metroNIDAZOLE [Flagyl] 500 mg PO Q8 #21 tab 01/25/16 Sulfamethoxazole/Trimethoprim 1 tab PO BID #14 tab 11/14/16 [Bactrim DS 800 mg-160 mg] Docusate [Colace] 100 mg PO BID #20 cap 03/11/17 Ciprofloxacin HCl [Cipro] 500 mg PO BID #20 tab 04/14/18 Dicyclomine [Dicyclomine HCl] 10 mg PO Q8 #10 cap 04/14/18 Albuterol HFA [Ventolin HFA 90 1 puff IH Q4 #1 inhaler 04/27/18 mcg/actuation (8 g)] Azithromycin [Z-Navdeep] 250 mg PO ASDIR #6 tab 04/27/18 Promethazine DM [Phenergan DM 5 ml PO Q8H PRN #120 ml 04/27/18 Syrup] Dicyclomine [Bentyl] 20 mg PO Q12 PRN #20 tab 11/09/18 Dicyclomine [Bentyl] 20 mg PO QID PRN #20 tab 11/24/18 Ibuprofen [Motrin] 600 mg PO TID 7 Days tab 01/15/19 - Allergies Allergies/Adverse Reactions: Allergies Allergy/AdvReac Type Severity Reaction Status Date / Time No Known Allergies Allergy Verified 11/08/18 21:01 Review of Systems ROS Statement: Except As Marked, All Systems Reviewed And Found Negative Cardiovascular: Negative for: Chest Pain Respiratory: Negative for: Shortness of Breath Musculoskeletal: Positive for: Other (left ankle pain). Negative for: Foot Pain Neurological: Negative for: Weakness, Numbness Physical Exam - Reviewed Nursing Documentation Reviewed: Yes Vital Signs Reviewed: Yes - Physical Exam Appears: Positive for: Non-toxic, No Acute Distress Head Exam: Positive for: ATRAUMATIC, NORMAL INSPECTION, NORMOCEPHALIC Skin: Positive for: Normal Color Eye Exam: Positive for: Normal appearance, EOMI, PERRL Neck: Positive for: Normal, Supple Cardiovascular/Chest: Positive for: Regular Rate, Rhythm. Negative for: Tachycardia Respiratory: Positive for: Normal Breath Sounds. Negative for: Respiratory Distress Pulses-Dorsalis Pedis (L): 2+ Pulses-Dorsalis Pedis (R): 2+ Back: Positive for: Normal Inspection. Negative for: L CVA Tenderness, R CVA Tenderness Extremity: Positive for: Normal ROM (FROM of left hip, left knee, digits on left foot; painful but full ROM of left ankle), Tenderness (tenderness to left bilateral malleolus), Capillary Refill (< 2 seconds), Swelling (ankle ). Negative for: Calf Tenderness, Deformity Neurologic/Psych: Positive for: Alert, Oriented, Other (normal distal senses left foot). Negative for: Motor/Sensory Deficits - ECG O2 Sat by Pulse Oximetry: 98 (RA) Pulse Ox Interpretation: Normal - Radiology X-Ray: Interpreted by Me, Viewed By Me X-Ray Interpretation: No Acute Disease - Progress ED Course And Treament: 925: Stable. AAOx3. Podiatry will see pt. 952: Stable. AAOx3. Podiatry saw pt. and will splint. Calling it ankle sprain. Medical Decision Making Medical Decision Making: Impression: Left ankle pain Plan: -- XR left ankle -- Motrin 600mg PO Scribe Attestation: Documented by Luly Luz acting as a scribe for Sebas Horvath MD Provider Attestation: All medical record entries made by the Scribe were at my direction and personally dictated by me. I have reviewed the chart and agree that the record accurately reflects my personal performance of the history, physical exam, medical decision making, and the department course for this patient. I have also personally directed, reviewed, and agree with the discharge instructions and disposition. Disposition - Clinical Impression Clinical Impression: Ankle sprain and strain - Patient ED Disposition Is Patient to be Admitted: No Counseled Patient/Family Regarding: Studies Performed, Diagnosis, Need For Followup, Rx Given - Disposition Referrals: Podiatry Clinic [Outside] - 01/19/19 Disposition: Routine/Home Disposition Time: 09:53 Condition: FAIR Additional Instructions: Return if not better in 3 days. Prescriptions: Ibuprofen [Motrin] 600 mg PO TID 7 Days tab Instructions: Ankle Sprain Forms: [employer] (Ind[place]ian), [facility] School/Work Excuse - POA Present On Arrival: Falls Or Trauma
--- NOTE | 2019-01-15 10:03 | RAD ---
Date of service: 01/15/2019 PROCEDURE: Left Ankle Radiographs. HISTORY: pain COMPARISON: None available. FINDINGS: BONES: Bone alignment and mineralization are normal. There is no acute displaced fracture or bone destruction. There is an os trigonum and small plantar calcaneal spur. JOINTS: Normal. No osteoarthritis. Ankle mortise maintained. Talar dome intact SOFT TISSUES: Mild periarticular soft tissue swelling, worse medially. OTHER FINDINGS: None. IMPRESSION: No acute displaced fracture or dislocation. Mild periarticular soft tissue swelling, worse laterally.
[2019-01-15 10:06] VITALS: BP 110/70; PULSE 78; RESP 20; TEMP 98
--- NOTE | 2019-01-15 11:28 | RAD ---
Date of service: 01/15/2019 PROCEDURE: Left Foot Radiographs. HISTORY: pain COMPARISON: None. FINDINGS: BONES: Bone alignment and mineralization are normal. There is no acute displaced fracture or bone destruction. JOINTS: Normal. SOFT TISSUES: There is a triangular radiodensity lateral to the distal phalanx of the great toe. OTHER FINDINGS: None. IMPRESSION: No acute displaced fracture or dislocation. Triangular radiodensity lateral to the distal phalanx of the great toe is undetermined, question nonspecific calcification versus foreign body. Clinical follow-up is advised. A preliminary report was provided by [employer].
--- NOTE | 2019-01-15 13:01 | CP.PCM.CON ---
History of Present Illness - History of Present Illness History of Present Illness: Podiatry consult note for Dr. Pham, 63 y/o male with history of diabetes, hypertension seen and evaluated in the ED for left ankle pain today. Patient states he was working out in the gym and is unsure of how but he injured his left ankle and now complains of pain and swelling to the ankle. Otherwise, he denies any weakness, numbness or tingling to the ankle; patient additionally denies any chest pain, shortness of breath. He states he is able to bear weight, but the pain worsens when he attempts to move. No complaints of knee pain, calf pain or foot pain as well. Review of Systems - Review of Systems All systems: reviewed and no additional remarkable complaints except Review of Systems: As per HPI Past Patient History - Past Medical History & Family History Past Medical History?: Yes - Past Social History Alcohol: None Drugs: Denies - CARDIAC Hx Hypertension: Yes - PULMONARY Hx Chronic Obstructive Pulmonary Disease (COPD): Yes - NEUROLOGICAL Hx Neurological Disorder: No - HEENT Hx HEENT Problems: Yes Other/Comment: wears glasses - RENAL Hx Chronic Kidney Disease: Yes - ENDOCRINE/METABOLIC Hx Endocrine Disorders: Yes Hx Diabetes Mellitus Type 2: Yes - HEMATOLOGICAL/ONCOLOGICAL Hx Blood Disorders: No - INTEGUMENTARY Hx Dermatological Problems: No - MUSCULOSKELETAL/RHEUMATOLOGICAL Hx Musculoskeletal Disorders: No Hx Falls: No - GASTROINTESTINAL Hx Gastrointestinal Disorders: No - GENITOURINARY/GYNECOLOGICAL Hx Genitourinary Disorders: Yes Hx Prostate Cancer: Yes - PSYCHIATRIC Hx Anxiety: Yes - SURGICAL HISTORY Hx Surgeries: Yes Other/Comment: Prostatectomy 2007 - ANESTHESIA Hx Anesthesia: Yes Hx Anesthesia Reactions: No Hx Malignant Hyperthermia: No Meds Home Medications: Home Medication List Medication Instructions Recorded Confirmed Type Ibuprofen [Motrin] 600 mg PO TID 7 Days tab 01/15/19 Rx Allergies/Adverse Reactions: Allergies Allergy/AdvReac Type Severity Reaction Status Date / Time No Known Allergies Allergy Verified 11/08/18 21:01 Physical Exam - Constitutional Appears: Well, Non-toxic, No Acute Distress - Head Exam Head Exam: ATRAUMATIC, NORMOCEPHALIC - Extremities Exam Additional comments: Bilateral Lower Extremity Exam VASC: DP and PT 2/4 bilaterally, CFT less than 3 seconds X 10, positive edema to the left ankle, TG normal NEURO: grossly intact DERM: no open lesions, no wounds, no erythema, no ecchymosis, no clinical signs of infection ORTHO: pain on palpation to the medial aspect of the left medial ankle, swelling noted to the ankle joint medially and laterally, pain with ankle joint range of motion - Neurological Exam Neurological exam: Alert, Oriented x3 - Psychiatric Exam Psychiatric exam: Normal Affect, Normal Mood Results - Vital Signs Recent Vital Signs: Last Vital Signs Temp 98 F 01/15/19 10:05 Pulse 78 01/15/19 10:05 Resp 20 01/15/19 10:05 BP 110/70 01/15/19 10:05 Pulse Ox 98 01/15/19 10:05 Assessment & Plan - Assessment and Plan (Free Text) Assessment: 63 y/o male patient seen and evaluated in the ED due to complaints of left ankle pain Plan: Patient seen and evaluated Plan discussed with Dr. Pham Chart, labs and vitals reviewed Left foot and ankle x-rays: no acute displaced fracture or dislocation, ni articular swelling noted Patient placed in a posterior splint Patient provided with crutches and crutch trained Patient to keep splint C/D/I until follow up visit Patient to ICE/elevate Patient demonstrated verbal understanding thank you for the consult - Date & Time Date: 01/16/19 Time: 07:03
== END 2019-01-15 10:10 | disposition home or self-care (01) ==
LOC: H.ER 06:57
DX: S93.402A Sprain of unspecified ligament of left ankle, initial encounter (principal); X50.9XXA Other and unspecified overexertion or strenuous movements or postures, initial encounter; Y92.89 Other specified places as the place of occurrence of the external cause; I12.9 Hypertensive chronic kidney disease with stage 1 through stage 4 chronic kidney disease, or unspecified chronic kidney disease; Z79.4 Long term (current) use of insulin; Z85.46 Personal history of malignant neoplasm of prostate